=== PATIENT | male | born 1960 | race Caucasian/White ===

== ENCOUNTER 2020-02-10 11:32 | Emergency (ER) | payer OTHER, SELFPAY ==
--- NOTE | 2020-02-10 11:44 | ED.GENADULT ---
HPI - General Adult General Chief complaint: Ear Stated complaint: Ear Ache Time Seen by Provider: 02/10/20 11:41 Source: patient Mode of arrival: ambulatory Limitations: no limitations History of Present Illness HPI narrative: 59 y/o male. PMH includes: MDD, DENISE, HTN, HLD, DM II. Presents to [facility] clinic today with acute complaints of LT side ear aching, worsening in past 72 hours. Client reports popping sensation, as well as throbbing descriptive pain. He notes to work outside for a [employer] , and feels this has contributed to me probably having an ear infection . No fever, chills. No FB sensation. No auditory changes or loss. He reports subtherapeutic relief with OTC remedies. No additional acute c/o upon PE. Related Data Home Medications Medication Instructions Recorded Confirmed buspirone 10 mg PO BID 01/13/19 02/10/20 dapagliflozin [Farxiga] 10 mg PO QAM 01/13/19 02/10/20 escitalopram oxalate 20 mg PO DAILY 01/13/19 02/10/20 glipizide 10 mg PO DAILY 01/13/19 02/10/20 lisdexamfetamine [Vyvanse] 30 mg PO DAILY 01/13/19 02/10/20 lisinopril-hydrochlorothiazide 1 tablet PO DAILY 01/13/19 02/10/20 metformin 1,000 mg PO BID 01/13/19 02/10/20 methylphenidate HCl [Concerta] 36 mg PO QAM 01/13/19 02/10/20 simvastatin 10 mg PO HS 01/13/19 02/10/20 Allergies Allergy/AdvReac Type Severity Reaction Status Date / Time No Known Allergies Allergy Verified 02/10/20 11:53 Review of Systems Review of Systems: Narrative: CONSTITUTIONAL: Denies fever, chills, sweats. EYES: Denies visual changes, redness, discharge. ENT: Denies rhinorrhea, congestion, sore throat. Positive otalgia LT. CARDIOVASCULAR: Denies chest pain, palpitations, edema. RESPIRATORY: Denies dyspnea, wheezing, cough GASTROINTESTINAL: Denies abdominal pain, nausea, vomiting, diarrhea. GENITOURINARY: Denies dysuria, hematuria, abnormal discharge SKIN: Denies rash or itching. MUSCULOSKELETAL: Denies acute back pain, joint pain, or myalgia. NEUROLOGIC: Denies numbness, or focal weakness. PSYCHIATRIC: Denies anxiety or depression. All systems reviewed & are unremarkable except as noted in HPI and below (HPI) [facility] Social History Social History Smoking status: Never smoker Second hand tobacco smoke exposure: No Alcohol intake: never Gender identity (if verbalized by the patient): Male Spiritual care concerns: No Comments At the time of my signature I agree with nursing past medical history, surgical, social, and family history. There is no relevant family history pertinent to the presenting complaint. Exam Narrative: Exam Narrative: GENERAL: This is a well-nourished, well-developed patient, in no apparent distress. HEAD: normocephalic, atraumatic. EYES: PERRL. Sclera clear/white. Vision is grossly intact. EARS: Pinna is normal shape and contour. LT ear with mild erythema and swelling of canal without discharge or obstruction. LT tenderness to auricle and pinna with palpation and manipulation. RT normal. Clear external auditory canals. No gross hearing deficit. NOSE: External nose normal. Positive PND. THROAT: Mucous membranes moist, posterior pharynx clear. NECK: Neck supple, non-tender without lymphadenopathy, masses or thyromegaly. CARDIOVASCULAR: Regular rate and rhythm without murmurs, gallops, or rubs. RESPIRATORY: Clear to auscultation. Breath sounds equal bilaterally. No wheezes, rales, or rhonchi. GASTROINTESTINAL: Abdomen soft, non-tender, nondistended. Bowel sounds are active. No hepato-splenomegaly, or palpable masses. No guarding. SKIN: warm, intact with no suspicious lesions or rash, good texture and turgor. NEURO: awake, alert, and oriented to person, place and time. There were no obvious focal neurologic abnormalities. Steady gait EXTREMITIES: Normal range of motion. No edema. No calf tenderness. Negative Homans sign bilaterally. BACK: Nontender without deform
[2020-02-10 11:45] VITALS: BP 147/98; PULSE 89; RESP 16; TEMP 36.2; O2SAT 99
== END 2020-02-10 11:59 | disposition home or self-care (01) ==
PROVIDERS: Emergency Provider Nurse Practitioner Adult Health; PCP Nurse Practitioner Family
DX: H66.92 Otitis media, unspecified, left ear (principal); I10 Essential (primary) hypertension; K21.9 Gastro-esophageal reflux disease without esophagitis; E11.9 Type 2 diabetes mellitus without complications; F90.9 Attention-deficit hyperactivity disorder, unspecified type
CPT/HCPCS: 99213; G0463

== ENCOUNTER 2021-01-02 10:34 | Emergency (ER) | payer OTHER, SELFPAY ==
[2021-01-02 10:42] VITALS: BP 127/89; PULSE 98; RESP 14; TEMP 36.4; O2SAT 98
--- NOTE | 2021-01-02 11:26 | ED.URI ---
HPI - URI/Sore Throat General Chief Complaint: Upper Respiratory Infection Stated Complaint: Sore Throat Source: patient and RN notes reviewed Limitations: no limitations History of Present Illness HPI Narrative: The vaccinated patient, a non-smoker/rare drinker, presents with sore throat. Patient states family members have been diagnosed with strep and he has a 5-day history of sore throat. No fever, cough, rash, vomiting/diarrhea; no loss of taste/smell, CP, wheezing/sneezing, S OB. He declines Covid testing as he had asymptomatic Covid illness in the last year, prior to vaccination. Related Data Home Medications Medication Instructions Recorded Confirmed buspirone 10 mg PO BID 01/13/19 01/02/21 dapagliflozin [Farxiga] 10 mg PO QAM 01/13/19 01/02/21 escitalopram oxalate 20 mg PO DAILY 01/13/19 01/02/21 glipizide 10 mg PO DAILY 01/13/19 01/02/21 lisdexamfetamine [Vyvanse] 30 mg PO DAILY 01/13/19 01/02/21 lisinopril-hydrochlorothiazide 1 tablet PO DAILY 01/13/19 01/02/21 methylphenidate HCl [Concerta] 36 mg PO BID 01/13/19 01/02/21 simvastatin 10 mg PO HS 01/13/19 01/02/21 albuterol sulfate See Rx Instructions .ROUTE 01/02/21 01/02/21 .COMPLEX PRN dulaglutide [Trulicity] See Rx Instructions .ROUTE .COMPLEX 01/02/21 01/02/21 empagliflozin [Jardiance] 25 mg PO DAILY 01/02/21 01/02/21 ergocalciferol (vitamin D2) See Rx Instructions .ROUTE .COMPLEX 01/02/21 01/02/21 meloxicam 15 mg PO DAILY 01/02/21 01/02/21 pantoprazole 40 mg PO DAILY 01/02/21 01/02/21 Allergies Allergy/AdvReac Type Severity Reaction Status Date / Time No Known Allergies Allergy Verified 01/02/21 10:54 Review of Systems Review of Systems: He has right chronic shoulder pain from superior labrum tear [SLAP] General/Constitutional: No weight loss,fever Eyes: N0: Redness,discharge Ears/Nose/Throat: No: Epistaxis,ear discharge Respiratory: Denies: Hemoptysis Gastrointestinal: No Vomiting, Bleeding-rectal Skin: No Lumps, eruption Neurologic: No Focal Weakness,Sz Hematologic: Denies: Petechiae/Purpura Psychiatric: No: Suicida ideationl All Other Systems: Reviewed and Negative [facility]FSH Social History Social History Smoking status: Never smoker Second hand tobacco smoke exposure: No Alcohol intake: never Gender identity (if verbalized by the patient): Male Spiritual care concerns: No Comments At time of signature, agree with nursing past medical, surgical, social and family history. There is no relevant family history pertinent to the presenting complaint Exam Narrative: General Appearance: Overweight/well nourished, Conjunctiva clear Ears: Auditory canal normal, TM normal Nose: Rhinorrhea, Mucousal erythema Mouth/Throat: MM moist, Uvula midline, Pharyngeal erythema Neck: Supple, No adenopathy Respiratory: No respiratory distress, Breath sounds equal, Clear to auscultation Cardiovascular: RRR, No JVD Musculoskeletal: Normal strength Skin: Warm, Dry Neurological: A&O x3, Normal affect Course Vital Signs Vital signs: Vital Signs Temperature 97.5 F L 01/02/21 10:42 Pulse Rate 98 01/02/21 10:42 Respiratory Rate 14 01/02/21 10:42 Blood Pressure 127/89 01/02/21 10:42 Pulse Oximetry 98 01/02/21 10:42 Temperature 97.5 F L 01/02/21 10:42 Pulse Rate 98 01/02/21 10:42 Respiratory Rate 14 01/02/21 10:42 Blood Pressure 127/89 01/02/21 10:42 Pulse Oximetry 98 01/02/21 10:42 MDM - URI/Sore Throat Lab Data Labs: Strep Screen Presumptive Negative *(Reference Range: Negative)* Discharge Plan Discharge Clinical Impression: Odynophagia Patient Disposition: Home, Self-Care Condition: Stable Instructions: Pharyngitis (ED) Additional Instructions: Decrease escitalopram by half/every other day with antibiotics Prescriptions: New azithromycin 250 mg tablet
== END 2021-01-02 11:35 | disposition home or self-care (01) ==
PROVIDERS: Emergency Provider Emergency Medicine
DX: R13.10 Dysphagia, unspecified (principal); E78.00 Pure hypercholesterolemia, unspecified; I10 Essential (primary) hypertension; Z86.16 Personal history of COVID-19; K21.9 Gastro-esophageal reflux disease without esophagitis; E11.9 Type 2 diabetes mellitus without complications; F90.9 Attention-deficit hyperactivity disorder, unspecified type
CPT/HCPCS: 87081; 87880; 99213; G0463

== ENCOUNTER 2021-03-26 08:22 | Emergency (ER) | payer OTHER, SELFPAY ==
[2021-03-26 08:27] VITALS: BP 122/82; PULSE 105; RESP 20; TEMP 36.6; O2SAT 97
--- NOTE | 2021-03-26 08:27 | ED.URI ---
HPI - URI/Sore Throat General Chief Complaint: Upper Respiratory Infection Stated Complaint: sore throat ear pain Time Seen by Provider: 03/26/21 08:27 Source: patient and RN notes reviewed History of Present Illness HPI Narrative: Patient is 60-year-old male who presents the urgent care with complaints of right ear pain and sore throat. Patient states that started approximately 4 days ago. Denies any fever, chills, nausea or vomiting. Patient has been taking his prescription hydrocodone as well as cold and flu medication for symptom relief. Denies of any known exposures. No other acute complaints. No acute distress noted. Patient read the plan of care. Some parts of this dictation were generated by voice recognition software and may contain typographical and/or grammatical inaccuracies. Related Data Home Medications Medication Instructions Recorded Confirmed buspirone 10 mg PO BID 01/13/19 01/02/21 dapagliflozin [Farxiga] 10 mg PO QAM 01/13/19 01/02/21 escitalopram oxalate 20 mg PO DAILY 01/13/19 01/02/21 glipizide 10 mg PO DAILY 01/13/19 01/02/21 lisdexamfetamine [Vyvanse] 30 mg PO DAILY 01/13/19 01/02/21 lisinopril-hydrochlorothiazide 1 tablet PO DAILY 01/13/19 01/02/21 methylphenidate HCl [Concerta] 36 mg PO BID 01/13/19 01/02/21 simvastatin 10 mg PO HS 01/13/19 01/02/21 albuterol sulfate See Rx Instructions .ROUTE 01/02/21 01/02/21 .COMPLEX PRN dulaglutide [Trulicity] See Rx Instructions .ROUTE .COMPLEX 01/02/21 01/02/21 empagliflozin [Jardiance] 25 mg PO DAILY 01/02/21 01/02/21 ergocalciferol (vitamin D2) See Rx Instructions .ROUTE .COMPLEX 01/02/21 01/02/21 meloxicam 15 mg PO DAILY 01/02/21 01/02/21 pantoprazole 40 mg PO DAILY 01/02/21 01/02/21 Wellbutrin XL 300 mg PO DAILY 03/26/21 03/26/21 tadalafil 5 mg PO DAILY 03/26/21 03/26/21 Allergies Allergy/AdvReac Type Severity Reaction Status Date / Time No Known Allergies Allergy Verified 01/02/21 10:54 Review of Systems Review of Systems: CONSTITUTIONAL: Denies fever, chills, or sweats. EYES: Denies visual changes, redness, or discharge. ENT: Reports of right otalgia and sore throat CARDIOVASCULAR: Denies chest pain, palpitations, or edema. RESPIRATORY: Denies cough or dyspnea. GASTROINTESTINAL: Denies abdominal pain, nausea, vomiting, or diarrhea. GENITOURINARY: Denies dysuria or hematuria. SKIN: Denies rash or itching. MUSCULOSKELETAL: Denies back pain, joint pain, or myalgia. NEUROLOGIC: Denies headache, numbness, or weakness. All other systems reviewed are negative, except as documented in HPI. [facility] Social History Social History Smoking status: Never smoker Second hand tobacco smoke exposure: No Alcohol intake: never Gender identity (if verbalized by the patient): Male Spiritual care concerns: No Comments At the time of my signature, I reviewed and agree with the nursing past medical, surgical, social, and family history. There is no relevant family history pertinent to the patient complaint. Exam Narrative: GENERAL: This is a well-nourished, well-developed patient, in no apparent distress. HEAD: normocephalic, atraumatic. EYES: PERRL. Sclera clear/white. Vision is grossly intact. EARS: External ears normal, auditory canals clear and without drainage, TMs normal without perforation. Hearing grossly intact. NOSE: External nose normal with no obvious nasal discharge, nares without redness, no rhinorrhea. THROAT: Mucous membranes moist. Moderate erythema noted posterior oropharynx without exudate or ulceration NECK: Neck supple CARDIOVASCULAR: Regular rate and rhythm without murmurs, gallops, or rubs. RESPIRATORY: Clear to auscultation. Breath sounds equal bilaterally. No wheezes, rales, or rhonchi. SKIN: warm, intact with no suspicious lesions or rash, good texture and turgor. NEURO: awake, alert, and oriented to person, place and time. There were no obvious focal neurologic abnormalitie
[2021-03-26 08:33] VITALS: BP 122/82; PULSE 105; RESP 20; TEMP 36.6; O2SAT 97
== END 2021-03-26 09:08 | disposition home or self-care (01) ==
PROVIDERS: Emergency Provider Nurse Practitioner Family; PCP Family Medicine
DX: J02.9 Acute pharyngitis, unspecified (principal); E78.00 Pure hypercholesterolemia, unspecified; I10 Essential (primary) hypertension; K21.9 Gastro-esophageal reflux disease without esophagitis; E11.9 Type 2 diabetes mellitus without complications; F90.9 Attention-deficit hyperactivity disorder, unspecified type; Z86.16 Personal history of COVID-19
CPT/HCPCS: 99211; G0463

== ENCOUNTER 2023-07-29 18:10 | Emergency (ER) | payer OTHER, SELFPAY ==
--- NOTE | ~2023-07-29 | XR_ITS ---
EXAMINATION: XR hand RT min 3V DATE: 07/29/2023 18:47 INDICATION: I b at the radial aspect of the right hand and wrist. TECHNIQUE: Posteroanterior, oblique and lateral views of the right hand were obtained. COMPARISON: None. FINDINGS: Alignment is normal. No fracture. 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 Soft tissues are unremarkable. No radiopaque foreign bodies. IMPRESSION: 1. No acute osseous abnormality or radiopaque foreign bodies. Of note nonosseous organic matter could be occult in a soft tissue background. Reviewed, dictated and finalized at location A. IMPRESSION: 1. No acute osseous abnormality or radiopaque foreign bodies. Of note nonosseou s organic matter could be occult in a soft tissue background.
[2023-07-29 18:29] VITALS: BP 145/92; PULSE 92; RESP 18; TEMP 36.1; O2SAT 96
--- NOTE | 2023-07-29 18:34 | ED.WOUNDLAC ---
HPI - Wound/Laceration General Chief Complaint: Wound/Laceration Stated Complaint: Catfish hayder went into hand Time Seen by Provider: 07/29/23 18:30 Source: patient and RN notes reviewed Mode of arrival: ambulatory Limitations: no limitations History of Present Illness HPI narrative: 62-year-old male presents with concern for a catfish hayder that pierced his right hand between the 1st and 2nd digits. Reports this happened just prior to arrival he reports he pulled out a catfish hayder and thinks he got all of it out. He reports swelling, redness, pain, slight decreased range of motion of the 1st and 2nd digits with flexion. Related Data Home Medications Medication Instructions Recorded Confirmed buspirone 10 mg tablet 10 mg PO TID 01/13/19 03/26/21 escitalopram oxalate 20 mg tablet 20 mg PO DAILY 01/13/19 03/26/21 glipizide 10 mg tablet 10 mg PO DAILY 01/13/19 03/26/21 lisdexamfetamine 30 mg capsule 30 mg PO DAILY 01/13/19 03/26/21 (Vyvanse) lisinopril 20 1 tablet PO DAILY 01/13/19 03/26/21 mg-hydrochlorothiazide 12.5 mg tablet methylphenidate HCl 36 mg 36 mg PO BID 01/13/19 03/26/21 tablet,extended release 24 hr (Concerta) simvastatin 10 mg tablet 10 mg PO HS 01/13/19 03/26/21 albuterol sulfate 90 mcg/actuation See Rx Instructions .Route 01/02/21 03/26/21 aerosol inhaler .COMPLEX PRN sob dulaglutide 1.5 mg/0.5 mL See Rx Instructions .Route .COMPLEX 01/02/21 03/26/21 subcutaneous pen injector (Trulicity) empagliflozin 25 mg tablet 25 mg PO DAILY 01/02/21 03/26/21 (Jardiance) ergocalciferol (vitamin D2) 1,250 See Rx Instructions .Route .COMPLEX 01/02/21 03/26/21 mcg (50,000 unit) capsule meloxicam 15 mg tablet 15 mg PO DAILY 01/02/21 03/26/21 pantoprazole 40 mg tablet,delayed 40 mg PO DAILY 01/02/21 03/26/21 release Wellbutrin XL 300 mg PO DAILY 03/26/21 03/26/21 aspirin 81 mg tablet 81 mg PO DAILY 03/26/21 03/26/21 metformin 500 mg tablet 1,000 mg PO BID 03/26/21 03/26/21 tadalafil 5 mg tablet 5 mg PO DAILY 03/26/21 03/26/21 Allergies Allergy/AdvReac Type Severity Reaction Status Date / Time No Known Allergies Allergy Verified 01/02/21 10:54 Review of Systems Review of Systems: CONSTITUTIONAL: Denies malaise, chills, sweats, or fever. SKIN: Reports puncture wound to the right hand, reports right hand swelling, redness MUSCULOSKELETAL: Reports right hand pain NEUROLOGIC: Denies numbness, weakness All systems reviewed & are unremarkable except as noted in HPI and below PMFSH Social History Social History Smoking status: Never smoker Second hand tobacco smoke exposure: No Alcohol intake: never Gender identity (if verbalized by the patient): Male Spiritual care concerns: No Comments At time of signature, agree with nursing past medical, surgical, social and family history. There is no relevant family history pertinent to the presenting complaint Exam Narrative: GENERAL: Well-appearing, well-nourished, and in no acute distress. HEAD: Normocephalic EYES: PERRLA, conjunctivae clear NECK: Supple. CHEST: Speaks in full sentences. No respiratory distress. HEART: Regular rate and rhythm. Normal and equal peripheral pulses. EXTREMITIES: Right hand and digits of hand have normal strength and sensation. 5/5 strength with digit flexion, extension. Range of motion slightly limited with flexion of the right 1st and 2nd digits likely due to swelling. No clubbing, cyanosis noted. Normal digital cascade with flexion of fingers, median, ulnar and radial nerve intact. Normal sensation of each side of finger. No scissoring. Normal thumb opposition. Good capillary refill and radial pulse. Distal capillary refill less than 3 seconds. Patient is right/left hand dominant SKIN: Warn, dry, intact, pink. Erythema, edema, tenderness and puncture wound noted between the 1st and 2nd digits of the right hand NEURO: Alert and oriented x3. P
[2023-07-29] MEDS: TETANUS,DIPHTHERIA,AC PERTUSSIS ADULT (0.5 ML) BOOSTRIX IM (18:58)
== END 2023-07-29 19:05 | disposition home or self-care (01) ==
PROVIDERS: Emergency Provider Nurse Practitioner
DX: S61.431A Puncture wound without foreign body of right hand, initial encounter (principal); W56.59XA Other contact with other fish, initial encounter; Z23 Encounter for immunization; E78.00 Pure hypercholesterolemia, unspecified; I10 Essential (primary) hypertension; K21.9 Gastro-esophageal reflux disease without esophagitis; E11.9 Type 2 diabetes mellitus without complications; F90.9 Attention-deficit hyperactivity disorder, unspecified type
CPT/HCPCS: 73130; 90471; 90715; 99213; G0463